=== PATIENT | female | born 1980 | race Caucasian/White ===

== ENCOUNTER → 2018-10-20 | Outpatient (CLI) | payer BC ==
[~2018-10-20] MED LIST: AMOXICILLIN 50500 MG PO; ESCITALOPRAM; LORTAB 5/500 501 TAB PO; NAPROSYN500 MG PO; NORCO 325 MG-51 TAB PO; PHENERGAN 25 TA25 MG PO; TRAZADONE HYDR100 MG PO; ZITHROMAX 250M250 MG PO
== END ==
LOC: COL.RAD 10:21
DX: J40 Bronchitis, not specified as acute or chronic (principal); J06.9 Acute upper respiratory infection, unspecified

== ENCOUNTER 2019-05-20 12:44 | Emergency (ER) | payer BC ==
[~2019-05-20] VITALS: Ht 167.6 cm; Wt 104.5 kg
[2019-05-20 12:50] VITALS: TEMP 98.1
[2019-05-20 13:23] LABS: BASO % 0.3 % (0.0-2.0); EOS # 0.1 (0.0-0.7); EOS % 1.5 % (0-4.0); GRAN % 55.8 % (42.2-75.2); HEMATOCRIT 39.3 % (37.0-47.0); HEMOGLOBIN 12.6 g/dl (12.5-16.0); LYMPH # 2.4 (1.2-3.4); LYMPH % 33.4 % (20.0-51.0); MEAN CELL VOLUME 88 fl (80.0-100.0); MEAN CORPUSCULAR HEMOGLOBIN 28 pg (27.0-31.0); MEAN CORPUSCULAR HGB CONC 32 g/dl (33.0-37.0); MEAN PLATELET VOLUME 10.3 fl (7.4-10.4); MONO # 0.6 (0.1-0.6); MONO % 8.6 % (1.7-9.3); PLATELET COUNT 286 K/mm3 (130-400); RED BLOOD COUNT 4.47 M/mm3 (4.10-5.30); REDCELL DISTRIBUTION WIDTH-CV 12.4 % (11.5-14.5)
[2019-05-20 13:43] LABS: ALANINE AMINOTRANSFERASE 18 U/L (9-52); ALBUMIN 4.5 gm/dL (3.5-5.0); ALKALINE PHOSPHATASE 69 U/L (50-136); ANION GAP 10 mmol/L (7-16); AST,SGOT 32 U/L (15-37); BILIRUBIN,TOTAL 0.4 mg/dL (0.0-1.0); BLOOD UREA NITROGEN 8 mg/dL (7-17); CALCIUM 9.5 mg/dL (8.4-10.2); CARBON DIOXIDE 28 mmol/L (22-30); CHLORIDE 102 mmol/L (98-107); CREATININE, serum 0.58 (0.52-1.25); GLUCOSE 90 mg/dL (74-106); POTASSIUM 3.8 mmol/L (3.4-5.0); SODIUM 140 mmol/L (137-145); TOTAL PROTEIN 8.9 gm/dL (6.4-8.2)
[2019-05-20 14:01] LABS: TROPONIN-I < 0.012 ng/mL (0.000-0.035)
[2019-05-20] MEDS ORDERED: HCTZ 25MG TAB25 MG PO (14:26)
[2019-05-20 14:33] VITALS: BP 142/92; PULSE 79
== END 2019-05-20 14:33 | disposition home or self-care (01) ==
LOC: COL.ER 12:44
PROVIDERS: Emergency Medicine
DX: R07.89 Other chest pain (principal); Z90.49 Acquired absence of other specified parts of digestive tract; Z90.710 Acquired absence of both cervix and uterus
CPT/HCPCS: J1885

== ENCOUNTER → 2020-11-02 | Outpatient (CLI) | payer BC ==
[~2020-11-02] MED LIST changes: +HCTZ 25MG TAB25 MG PO
== END ==
LOC: MC.RAD 09:00
DX: Z12.31 Encounter for screening mammogram for malignant neoplasm of breast (principal)

== ENCOUNTER → 2022-04-10 | Outpatient (CLI) | payer OTHER | LOC: COL.CARD 10:51 | DX: R01.1 Cardiac murmur, unspecified (principal) ==

== ENCOUNTER → 2022-04-18 | Outpatient (CLI) | payer OTHER | LOC: COL.VAS 13:57 | DX: I51.7 Cardiomegaly (principal) ==

== ENCOUNTER → 2022-05-02 | Outpatient (CLI) | payer OTHER | LOC: MC.RAD 13:42 | DX: Z12.31 Encounter for screening mammogram for malignant neoplasm of breast (principal) ==